=== PATIENT | female | born 1930 | race Caucasian/White ===

== ENCOUNTER → 2017-03-06 | Outpatient (CLI) | payer MEDICARE, OTHER ==
[~2017-03-06] MED LIST: HYDR-4246 PO; LEVO25TA4 PO
[2017-03-06 16:23] LABS: BASOPHILS % (AUTO) 0.5 % (0-2); EOSINOPHILS # (AUTO) 0.1 T/MM3 (0-0.5); EOSINOPHILS % (AUTO) 1.5 % (0-4); HCT - HEMATOCRIT 41.3 % (36-46); HGB - HEMOGLOBIN 13.8 GM/DL (12-16); IMMATURE GRANULOCYTE # (AUTO) 0.02 T/MM3 (0.00-0.03); IMMATURE GRANULOCYTE % (AUTO) 0.3 % (0.0-0.5); LYMPHOCYTES % (AUTO) 39.7 % (23-45); MEAN CORPUSCULAR HGB 28.5 UUG (26-34); MEAN CORPUSCULAR HGB CONC(MCHC 33.4 GM/DL (31-37); MEAN CORPUSCULAR VOLUME 85.2 UM3 (80-100); MEAN PLATELET VOLUME 9.2 UM3 (9.4-12.4); MONOCYTES # (AUTO) 0.5 T/MM3 (0-0.8); MONOCYTES % (AUTO) 6.8 % (0-9.0); NEUTROPHILS #(AUTO)-ABSOLUTE 3.9 T/MM3 (1.8-7.7); NEUTROPHILS % (AUTO) 51.2 % (33-66); RED BLOOD COUNT 4.85 M/MM3 (4.00-5.20); WBC - WHITE BLOOD COUNT 7.6 T/MM3 (4.5-11.0)
[2017-03-06 16:32] LABS: ALBUMIN 4.2 G/DL (3.5-5.0); ALBUMIN/GLOBULIN RATIO 1.6 RATIO (1.1-2.2); ALKALINE PHOSPHATASE 88 U/L (38-126); ALT (SGPT) 29 U/L (9-52); ANION GAP 11 MEQ/L (5-15); AST (SGOT) 22 U/L (14-36); BUN/CREATININE RATIO 17 RATIO (6-26); CALCIUM 9.8 MG/DL (8.4-10.2); CHLORIDE 103 MEQ/L (98-107); CO2 - CARBON DIOXIDE 27 MEQ/L (22-30); CREATININE 1.1 MG/DL (0.7-1.2); GLOMERULAR FILTRATION RATE 47; GLUCOSE 106 MG/DL (65-110); POTASSIUM 4.3 MEQ/L (3.6-5); SODIUM 141 MEQ/L (134-144); TOTAL PROTEIN 6.9 G/DL (6.3-8.2)
== END ==
LOC: LAB 16:09
PROVIDERS: ATTEND Surgery Plastic and Reconstructive Surgery
DX: Z01.818 Encounter for other preprocedural examination (principal)
CPT/HCPCS: 36415; 80053; 85025

== ENCOUNTER 2017-03-13 07:30 | Day surgery (SDC) | payer MEDICARE, OTHER ==
[~2017-03-13] VITALS: Ht 172.7 cm; Wt 78.9 kg
[2017-03-13] VITALS (13 sets, daily range): BP systolic 119–155; BP diastolic 58–80; PULSE 56–68; RESP 12–18; TEMP 97.3–97.7; O2SAT 92–96; Ht 172.7 cm; Wt 78.9 kg
[~2017-03-13 07:30] MED LIST changes: -HYDR-4246 PO; +LIDOCAINE 1% (10mg/ml) 2ml SDV INJ ONE; +LR 1,000 ML IV SCH
[2017-03-13] MEDS ORDERED: CEFAZOLIN 1 GRAM INJECTION IV ONE (08:00)
[2017-03-13] MEDS ORDERED: LIDOCAINE 1%/EPI 1:100,000 20ml MDV ONE (08:32)
--- NOTE | 2017-03-13 09:11 | ANESPREOP ---
Anesthesia Record Date and Time DATE: 03/13/17 TIME: 09:08 Pre-Op Diagnosis BCC Scalp Proposed Surgical Procedure EXC. BASAL CELL CARCINOMA L. FRONTAL SCALP NPO since: [place] Allergies: Coded Allergies: No Known Allergies (Unverified , 03/13/17) Ht/Wt/BMI Height: 5 ' 8.00 " Weight: 78.900 kg BMI: 26.5 kg/m2 Vital Signs Date Time Temp Pulse Resp B/P Pulse Ox O2 Delivery O2 Flow Rate FiO2 03/13/17 07:51 97.7 58 16 128/66 95 Room Air Medications Inpatient Medications Current Medications Medications (Trade) Dose Ordered Sig/Melanie Start Time Stop Time Status Last Admin Dose Admin Lactated Ringer's (Lactated Ringers) 1,000 ml @ 50 mls/hr Q20H 03/13/17 07:00 03/13/17 07:54 50 MLS/HR Midazolam HCl (Versed) 0.5-3 MG Q10M PRN 03/13/17 10:15 Fentanyl (Fentanyl) 25-50MCG IV PUSH PRN NOT... PRN PRN 03/13/17 10:15 Levothyroxine Sodium (Synthroid) 25 Mcg Tablet, 1 PO DAILY, (Reported) BEST IF TAKEN BEFORE BREAKFAST Last Taken: on 03/12/17 0600 Currently on Beta Shabbir: No Medical/Surgical History Anesthesia PMH: Reports: Cancer (SKIN), Thyroid Disease, Denies: *Diabetes, Glaucoma, Sleep Apnea Smoking Status: Never smoker Use Chewing Tobacco?: No Second Hand Exposure: No Substance Use Type: does not use Alcohol Intake: other (occas) Past Surgical History Orthopedic Surgeries: Yes - BILATERAL HIP REPLACEMENTS 1994 ,[facility] Abdominal Surgeries: Genitourinary Surgeries: Cardiac Surgeries: Endocrine Surgeries: Reproductive Surgeries: Neurological Surgeries: Ear Surgeries: Nose Surgeries: Throat Surgeries: Other Surgeries: Anesthesia Adverse Reactions: FOUND none Family Hx of Anesthesia Advers: none Hx of Motion Sickness: No Pertinent Findings EKG Rhythm: Sinus Rhythm Physical Exam Respiratory: Bilat breath sounds equal, Lungs clear Cardiovascular: FOUND Regular rate, rhythm, FOUND No murmur Airway Assessment Mallampati Score: I TMD: 3 Fingerbreadths Neck Extension: Good Overall Assessment: No Airway Concerns ASA: 2 Plan Anesthesia Plan: MAC Discussion Discussed risks/options/alternatives of anesthesia and questions answered. Patient consents. Nursing pain assessment noted. Present: Family Member Attestation Statement Prior to the delivery of any anesthetic medication, I examined the patient, developed the plan, obtained the patient's consent and discussed the risk and benefits of the procedure with the patient/guardian. KELLEE BRYSON CRNA March 13, 2017 09:11
[2017-03-13] MEDS ORDERED: MIDAZOLAM 5mg/5ml INJECTION IV PRN (10:15)
[2017-03-13] MEDS ORDERED: FENTANYL 100mcg/2ml INJECTION IV PRN (10:15)
[2017-03-13] MEDS ORDERED: FENTANYL 100mcg/2ml INJECTION ONE (10:50)
[2017-03-13] MEDS ORDERED: MIDAZOLAM 2mg/2ml INJECTION ONE (10:50)
--- NOTE | 2017-03-13 11:07 | PDPROCED ---
Procedure Note Date 03/13/17 Procedure Name Excision of BCC left frontal scalp with frozen section guidance of margins and complex closure: Lesion size: 0.8 cm, excision 1.8 cm, final defect 3.8 cm Procedure Detail Preop dx: BCC left frontal scalp Postop dx: Same Anesthesia: MAC EBL: Less than 15 ml Case: Clean Complications: None NAMITA FORBES MD March 13, 2017 11:07
[2017-03-13] MEDS ORDERED: HYDROCODONE/APAP 5 mg/325 mg TABLET PO PRN (11:15)
[2017-03-13] MEDS ORDERED: ATROPINE 1mg/10ml Syringe IV PRN (11:15)
[2017-03-13] MEDS ORDERED: ONDANSETRON 4mg/2ml INJECTION IV PRN (11:15)
--- NOTE | 2017-03-13 11:17 | ANESPO ---
Post-Op Note Date 03/13/17 Time: 11:17 Status Pt Participated in Evaluation: Pt participated in person Vital Signs Date Time Temp Pulse Resp B/P Pulse Ox O2 Delivery O2 Flow Rate FiO2 03/13/17 10:05 58 16 155/65 96 Room Air 03/13/17 07:51 97.7 Respiratory Function: Airway patent, Regular respirations Cardiovascular Function: Regular pulse Telemetry Pattern: SR Mental Status: Alert/oriented Pain Level Intensity: 0 Hydration: Taking po fluids Complications during Recovery None apparent Follow-Up Instructions Instructions Per Surgeon KELLEE BRYSON CRNA March 13, 2017 11:17
[2017-03-13] MEDS ORDERED: ACET1TAB12 PO (11:18)
[2017-03-13] MEDS ORDERED: CEPH-583 PO (11:18)
--- NOTE | 2017-03-13 11:28 | NUR ---
0915 DR. FORBES TO PT'S ROOM IN PREOP TO BEGIN PROCEDURE. SURGICAL SITE PREPPED AND DRAPED BY DR. FORBES. TIMEOUT PERFORMED BY SURGICAL TEAM AT 09. 1%LIDOCAINE WITH EPI 1:100,000 6CC INJECTED INTO SURGICAL SITE AT [address] FORBES. LESION EXCISED AT 09 AND SENT TO PATHOLOGY. BOVIE USED AT HIGHEST LEVEL OF 20. SPECIMEN LABELED FOLLOWS: ACCESSION NUMBER [id number] 1. BASAL CELL CARCINOMA LEFT FRONTAL SCALP WITH NEEDLE AT 1200 MEDIAL. PT. TOLERATED PROCEDURE WELL. PROCEDURE ENDED AT 929.
--- NOTE | 2017-03-13 18:50 | OPNOTEF ---
DATE OF SURGERY 03/13/2017 SURGEON Kalra Oconnell MD PREOPERATIVE DIAGNOSIS Basal cell carcinoma, left frontal scalp. POSTOPERATIVE DIAGNOSIS Basal cell carcinoma, left frontal scalp. OPERATION Excision of basal cell carcinoma, left frontal scalp, with frozen section guidance of margins and complex closure: Lesion size was 0.8 cm, excision 1.8 cm, final defect 3.8 cm. ANESTHESIA MAC. INDICATIONS The patient is an 86-year-old woman who was referred by FERNANDO Johnston, for evaluation and management of a basal cell carcinoma of her left frontal scalp. The patient stated that the lesion had been present for over five years. It had not been bothersome until after she cut her head on a cabinet door a month prior to her initial presentation. The area was tender and did bleed when bumped. Prior to the incident, she had had no difficulties with the lesion. Shave biopsy was performed on 02/05/2017 and pathology revealed and confirmed basal cell carcinoma present at the margins. The patient has no family history of skin cancer although she did have frequent sun exposure in her youth. On exam, she had a 0.8 cm erythematous and slightly ulcerated biopsy site of the left frontal scalp. In detailed discussion with the patient preoperatively, the risks, benefits and alternatives of excision of the lesion with frozen section guidance of margins and closure were reviewed including, although not limited to, bleeding, infection, poor or keloid scarring, residual and/or recurrent disease, possible partial or complete loss of the flap or graft. The patient understood and wished to proceed. NARRATIVE OF PROCEDURE The patient was marked preoperatively and, after suitable IV sedation, the scalp was prepped and draped in the usual sterile manner. Of note, she received 1 g Ancef preoperatively and worse sequential stockings throughout. The area was then infiltrated with 1% lidocaine with epinephrine. The lesion was excised and handed off as a specimen with a tag at the 12 o'clock margin. Subsequent pathologic evaluation revealed basal cell carcinoma with clear margins. She was then brought to the operating room and again prepped and draped in the usual sterile manner. The area was again infiltrated with 1% lidocaine with epinephrine and widely undermined and dog ears removed. The wound was then closed in one layer using interrupted 3-0 and 4-0 nylon. Bacitracin and a dry sterile dressing as well as Kerlix were applied. The patient was then brought to the recovery room in stable condition. Estimated blood loss less than 15 mL. The case was clean. Specimen was a basal cell carcinoma of the left frontal scalp. SHIRA
== END 2017-03-13 11:50 | disposition home or self-care (01) ==
LOC: NSC 07:30
PROVIDERS: ATTEND Surgery Plastic and Reconstructive Surgery
DX: C44.41 Basal cell carcinoma of skin of scalp and neck (principal)
CPT/HCPCS: 11622; 13121; 88305; 88331; 88332; J0690; J2250; J3010; J7120